=== PATIENT | male | born 1980 | race Asian ===

== ENCOUNTER 2017-06-21 16:26 | Emergency (ER) | payer OTHER ==
--- NOTE | 2017-06-21 18:48 | EDPHY ---
HPI/HX/ROS/PE/MDM Narrative: CHIEF COMPLAINT: Right chest/abdominal/shoulder blanco HPI: This patient is a pleasant 37 y/o male complaining of right-sided arm and neck pain onset yesterday as well as right upper quadrant abdominal pain onset this afternoon. He recently travelled to [facility], a 30 hour trip, and returned last week. Yesterday, he developed right-sided neck pain radiating to arm. He had a similar issue last time he had prolonged travel with pain in his back and shoulder. He made an appointment with his primary care provider this evening. This afternoon around 3:15, he developed severe RUQ abdominal pain. He describes this as a pressure sensation in his right upper abdominal area. He did have a late lunch today, and ate fried food, which is unusual for him. He initially went to urgent care, but was referred to the emergency department. On his way here, he drank some hot water and took potassium tablets. Currently, he feels his abdominal pain is largely resolved. He denies any history of clotting , cholelithiasis, or abdominal surgery. He continues to have pain in his neck radiating down to his hand. He denies numbness or paresthesias. He denies recent trauma. No fever, shortness of breath, headache, nausea, urinary complaints, or other associated symptoms. REVIEW OF SYSTEMS: Aside from elements discussed in the HPI, a comprehensive 10-point review of systems was reviewed and is negative. PMH: Hernia repair. SOCIAL HISTORY: . PHYSICAL EXAM: General:Patient is alert, in no acute distress. ENT:Eyes are normal to inspection. ENT inspection normal. Neck: Normal inspection. Full range of motion. Respiratory:No respiratory distress. Breath sounds normal bilaterally. Cardiovascular: Regular rate and rhythm. Strong peripheral pulses. Normal cap refill. Abdomen:The abdomen is nontender to palpation. There are no peritoneal signs. There are normal bowel sounds. Back: Normal to inspection. No tenderness to palpation. Skin: Normal color. No rash. Warm and dry. Extremities: Normal appearance. Full range of motion. Neuro: Oriented x3. Normal motor function. Normal sensory function. ED Course: 37 year old male presents with right-sided neck, arm, and abdominal pain. Exam unremarkable. Plan for chest x-ray, US abdomen for further evaluation. IV established. Plan for labs including CBC, chemistries, troponin, D-dimer, liver , lipase. Administered 1L IV NS. Reviewed chest x-ray. Negative for acute processes. Lipase mildly elevated at 371. No epigastric tenderness on exam. Troponin and D-dimer negative. 20:[address] Hammer, radiologist. US abdomen negative for acute processes. Reassessed patient. He is feeling better, abdomen is benign on exam. Plan to discharge home in good condition with referral to GI specialist. Follow up and return precautions discussed. The patient is comfortable with this plan. MDM: This patient presents with RUQ abdominal pain that occurred after eating. Given his recent long airline travel I considered PE, but thankfully d-dimer is negative and patient has no other risk factors for this disease. He denies chest pain to suggest ACS. I suspect his symptoms are most likely due to biliary pathology, but gallbladder was contracted on ultrasound, making diagnosis difficult. The patient has normal LFTs and a normal WBC, making cholecystitis and hepatitis both unlikely. His lipase is minimally elevated, but he is not vomiting and his pain is clearly RUQ rather than epigastric, so I think this is unlikely to be pancreatitis. On re-evaluation his pain has fully resolved and his abdomen is benign. The patient also complains of right shoulder pain which he attributes to lifting heavy luggage. I considered the possibility that his represents referred pain from diaphragm, but this appears to be clearly reproducible with ROM of his arm and shoulder. CXR is negative - there are no signs of PTX or rib injury. In summary, this patient has resolved RUQ pain that is most likely biliary in nature. I think he would benefit from an outpatient workup, specifically a HIDA scan. We will refer him to a GI specialist. He promises to return for any recurrence of symptoms. - Data Points Imaging Results: Imaging Impressions Abdomen Ultrasound 06/21/17 19:00 Impression: Nondiagnostic study. Recommend follow-up gallbladder ultrasound after an overnight fast +- proceeding to nuclear medicine HIDA scan. Results discussed with Dr. Mejia. Chest X-Ray 06/21/17 19:01 Impression: 1. Normal chest tube. 2. Query constipation? Imaging: Discussed imaging studies w/ body recall instructor Radiologist, I viewed and interpreted images myself Laboratory Results: Laboratory Results 06/21/17 19:07 06/21/17 19:07 06/21/17 06/21/17 06/21/17 19:07 19:07 19:07 WBC RBC Hgb Hct MCV MCH MCHC RDW Plt Count MPV Neut % (Auto) Lymph % (Auto) [place] % (Auto) Eos % (Auto) Baso % (Auto) Nucleat RBC Rel Count Absolute Neuts (auto) Absolute Lymphs (auto) Absolute Monos (auto) Absolute Eos (auto) Absolute Basos (auto) Absolute Nucleated RBC Immature Gran % Immature Gran # D-Dimer 0.33 ug/mLFEU ug/mLFEU (0.00-0.50) Sodium 145 mEq/L H mEq/L (134-144) Potassium 3.9 mEq/L mEq/L (3.5-5.2) Chloride 104 mEq/L mEq/L (97-110) Carbon Dioxide 28 mEq/l mEq/l (22-31) Anion Gap 13 mEq/L mEq/L (8-16) BUN 12 mg/dL mg/dL (7-23) Creatinine 1.0 mg/dL mg/dL (0.7-1.3) Estimated GFR > 60 Glucose 90 mg/dL mg/dL (70-100) Calcium 9.4 mg/dL mg/dL (8.5-10.4) Total Bilirubin 0.4 mg/dL mg/dL (0.1-1.4) Conjugated Bilirubin 0.1 mg/dL mg/dL (0.0-0.5) Unconjugated Bilirubin 0.3 mg/dL mg/dL (0.0-1.1) AST 22 IU/L IU/L (17-59) ALT 49 IU/L IU/L (21-72) Alkaline Phosphatase 76 IU/L IU/L (38-126) Troponin I < 0.012 ng/mL ng/mL (0.000-0.034) Total Protein 7.1 g/dL g/dL (6.3-8.2) Albumin 4.3 g/dL g/dL (3.5-5.0) Lipase 371 IU/L H IU/L (23-300) 06/21/17 19:07 WBC 6.29 10^3/uL 10^3/uL (3.80-9.50) RBC 4.73 10^6/uL 10^6/uL (4.40-6.38) Hgb 14.7 g/dL g/dL (13.7-17.5) Hct 41.5 % % (40.0-51.0) MCV 87.7 fL fL (81.5-99.8) MCH 31.1 pg pg (27.9-34.1) MCHC 35.4 g/dL g/dL (32.4-36.7) RDW 12.3 % % (11.5-15.2) Plt Count 131 10^3/uL L 10^3/uL (150-400) MPV 13.2 fL H fL (8.7-11.7) Neut % (Auto) 40.8 % % (39.3-74.2) Lymph % (Auto) 38.6 % % (15.0-45.0) [place] % (Auto) 14.1 % H % (4.5-13.0) Eos % (Auto) 5.2 % % (0.6-7.6) Baso % (Auto) 1.0 % % (0.3-1.7) Nucleat RBC Rel Count 0.0 % % (0.0-0.2) Absolute Neuts (auto) 2.56 10^3/uL 10^3/uL (1.70-6.50) Absolute Lymphs (auto) 2.43 10^3/uL 10^3/uL (1.00-3.00) Absolute Monos (auto) 0.89 10^3/uL H 10^3/uL (0.30-0.80) Absolute Eos (auto) 0.33 10^3/uL 10^3/uL (0.03-0.40) Absolute Basos (auto) 0.06 10^3/uL 10^3/uL (0.02-0.10) Absolute Nucleated RBC 0.00 10^3/uL 10^3/uL (0-0.01) Immature Gran % 0.3 % % (0.0-1.1) Immature Gran # 0.02 10^3/uL 10^3/uL (0.00-0.10) D-Dimer Sodium Potassium Chloride Carbon Dioxide Anion Gap BUN Creatinine Estimated GFR Glucose Calcium Total Bilirubin Conjugated Bilirubin Unconjugated Bilirubin AST ALT Alkaline Phosphatase Troponin I Total Protein Albumin Lipase Medications Given: Discontinued Medications Sodium Chloride (Ns) 1,000 mls @ 3,000 mls/hr IV ONCE ONE Stop: 12/04/17 19:19 Last Admin: 06/21/17 19:12 Dose: 1,000 mls Sodium Chloride (Ns) 1,000 mls @ 0 mls/hr IV EDNOW ONE; Wide Open PRN Reason: Protocol Stop: 06/21/17 19:01 Last Admin: 06/21/17 19:53 Dose: 1,000 mls General Time Seen by Provider: 06/21/17 18:47 Initial Vital Signs: Initial Vital Signs Temperature (C) 36.5 C 06/21/17 16:33 Heart Rate 72 06/21/17 16:33 Respiratory Rate 16 06/21/17 16:33 Blood Pressure 127/80 H 06/21/17 16:33 O2 Sat (%) 97 06/21/17 16:33 O2 Delivery Mode Room Air Allergies/Adverse Reactions: No Known Allergies Allergy (Unverified 06/21/17 16:36) Home Medications: Medication Instructions Recorded NK [No Known Home Meds] 06/21/17 Departure - Departure Disposition: Home, Routine, Self-Care Clinical Impression: Abdominal pain Qualifiers: Abdominal location: right upper quadrant Qualified Code(s): R10.11 - Right upper quadrant pain Condition: Good Instructions: Acute Abdominal Pain (ED) Additional Instructions: 1. Follow up with your PCP within one week for symptoms unresolved or returning. We have also provided a referral to a gastroenterology specialist. We recommend a HIDA scan for further evaluation. 2. Return to the emergency department for recurrent symptoms or if you develop fever, increased pain, uncontrollable vomiting or diarrhea, or other worsening of condition. Referrals: Warren Aguayo DO [Primary Care Provider] - As per Instructions Bridger Figueroa MD [Medical Doctor] - As per Instructions Report Scribed for: Francisco Javier Mejia Report Scribed by: Karey Camara Date of Report: 06/21/17 Time of Report: 18:47 Physician Review and Approval Statement: Portions of this note were transcribed by an ED scribe. I personally performed the history, physical exam, and medical decision making; and confirm the accuracy of the information in the transcribed note.
[2017-06-21] MEDS ORDERED: NS 1,000 ML IV ONE ×2 (19:00)
--- NOTE | 2017-06-21 19:22 | CPEKG ---
Heart Rate: 48 RR Interval: 1250 P-R Interval: 136 QRSD Interval: 82 QT Interval: 444 QTC Interval: 397 P [place]: 67 QRS [place]: 54 T Wave [place]: 40 EKG Severity - OTHERWISE NORMAL ECG - EKG Impression: SINUS BRADYCARDIA Electronically Signed By: Francisco Javier Mejia 21-Jun-2017 21:52:27
[2017-06-21 19:28] LABS: % IMMATURE GRANULYOCYTES 0.3 % (0.0-1.1); ABSOLUTE IMMATURE GRANULOCYTES 0.02 10^3/uL (0.00-0.10); ADD DIFF? NO; ADD MORPH? NO; ADD SCAN? NO; ATYPICAL LYMPHOCYTE FLAG 20 (0-99); FRAGMENT RBC FLAG 0 (0-99); HEMATOCRIT 41.5 % (40.0-51.0); HEMOGLOBIN 14.7 g/dL (13.7-17.5); LEFT SHIFT FLG 0 (0-99); LIPEMIA HEMOLYSIS FLAG 90 (0-99); MEAN CELL HEMOGLOBIN 31.1 pg (27.9-34.1); MEAN CELL HEMOGLOBIN CONCENTR. 35.4 g/dL (32.4-36.7); MEAN CELL VOLUME 87.7 fL (81.5-99.8); MEAN PLATELET VOLUME 13.2 fL (8.7-11.7); PLATELET CLUMPS FLAG 20 (0-99); PLATELET COUNT 131 10^3/uL (150-400); RED BLOOD CELL COUNT 4.73 10^6/uL (4.40-6.38); RED CELL DISTRIBUTION WIDTH 12.3 % (11.5-15.2)
[2017-06-21 19:41] LABS: ALANINE AMINOTRANSFERASE 49 IU/L (21-72); ALBUMIN 4.3 g/dL (3.5-5.0); ALKALINE PHOSPHATASE 76 IU/L (38-126); ANION GAP 13 mEq/L (8-16); ASPARTATE AMINOTRANSFERASE 22 IU/L (17-59); BILIRUBIN,TOTAL 0.4 mg/dL (0.1-1.4); BILIRUBIN-CONJUGATED 0.1 mg/dL (0.0-0.5); BILIRUBIN-UNCONJUGATED 0.3 mg/dL (0.0-1.1); CALCIUM 9.4 mg/dL (8.5-10.4); CARBON DIOXIDE 28 mEq/l (22-31); CHLORIDE 104 mEq/L (97-110); GLOMERULAR FILTRATION RATE > 60; GLUCOSE 90 mg/dL (70-100); POTASSIUM 3.9 mEq/L (3.5-5.2); SODIUM 145 mEq/L (134-144); TOTAL PROTEIN 7.1 g/dL (6.3-8.2)
[2017-06-21 21:34] VITALS: BP 131/63; PULSE 66; RESP 18; TEMP 97.9; O2SAT 98
== END 2017-06-21 21:33 | disposition home or self-care (01) ==
DX: R10.11 Right upper quadrant pain (principal); E86.9 Volume depletion, unspecified